=== PATIENT | female | born 1990 | race Caucasian/White ===

== ENCOUNTER → 2022-10-21 | Outpatient (CLI) | payer BC | LOC: GIR 16:21 | PROVIDERS: ATTEND Family Medicine | DX: N91.2 Amenorrhea, unspecified (principal) | CPT/HCPCS: 84702 ==

== ENCOUNTER → 2022-10-23 | Outpatient (CLI) | payer BC | LOC: GIR 16:00 | PROVIDERS: ATTEND Family Medicine | DX: N91.2 Amenorrhea, unspecified (principal) | CPT/HCPCS: 84702 ==

== ENCOUNTER 2022-12-06 06:05 | Day surgery (SDC) | payer BC ==
[~2022-12-06] VITALS: Ht 172.7 cm; Wt 139.1 kg
[2022-12-06] VITALS (10 sets, daily range): BP systolic 94–143; BP diastolic 54–91
[~2022-12-06 06:05] MED LIST: LABE1PLA IV; LEVO25CA4 PO
[2022-12-06] MEDS ORDERED: LACTATED RINGERS 1,000 ML 1,000 ML IV PRN (06:15)
[2022-12-06] MEDS ORDERED: dexAMETHasone INJ 10 MG/ML 1 ML VIAL ONE (07:14)
[2022-12-06] MEDS ORDERED: LIDOCAINE PF 2% 5 ML VIAL ONE (07:14)
[2022-12-06] MEDS ORDERED: SEVOFLURANE (ULTANE) 15 ML INHAL SOLN ONE (07:14)
[2022-12-06] MEDS ORDERED: fentaNYL INJECTION 100 MCG/2 ML VIAL ONE (07:14)
[2022-12-06] MEDS ORDERED: MIDAZOLAM INJ 2 MG/2 ML VIAL ONE (07:14)
[2022-12-06] MEDS ORDERED: proPOfol INJECTION 200 MG/20 ML VIAL IV ONE (07:14)
[2022-12-06] MEDS ORDERED: ONDANSETRON INJECTION 4 MG/2 ML (SDV) ONE (07:14)
[2022-12-06] MEDS ORDERED: KETOROLAC INJ 30 MG/ML VIAL ONE (07:14)
--- NOTE | 2022-12-06 07:22 | Progress Note-Pre Operative ---
Pre-Operative Progress Note Date of Available H&P: Dec 06, 2022 Date H&P Reviewed: Dec 06, 2022 Time H&P Reviewed: 07:21 History & Physical: H&P Reviewed, No changes noted Pre-Operative Diagnosis: Retained POC plan for D&C JOSE LOGAN DO Dec 06, 2022 07:22
[2022-12-06] MEDS ORDERED: OXYTOCIN INJECTION 10 UNIT/ML VIAL ONE (07:43)
--- NOTE | 2022-12-06 07:54 | Anesthesia-General Post-Op ---
General Patient Condition Mental Status/LOC: Same as Preop Cardiovascular: Satisfactory Nausea/Vomiting: Absent Respiratory: Satisfactory Pain: Controlled Complications: Absent Post Op Complications Complications None Follow Up Care/Instructions Patient Instructions None needed. Anesthesia/Patient Condition Patient Condition Patient is doing well, no complaints, stable vital signs, no apparent adverse anesthesia problems. No complications reported per nursing. MAYA FALCON CRNA Dec 06, 2022 07:54
--- NOTE | 2022-12-06 07:57 | OB/GYN Operative Report ---
Operative Report Date of Procedure:Dec 06, 2022 Preoperative Diagnosis: Retained Products of conception Postoperative Diagnosis: Same Name of the Procedure: Suction D&C Surgeon: Jose Logan [employer] Lecturer(s): [none] Anesthesia: GLMA Indications for Procedure: Retained POC Findings of the Procedure: Retained POC Complications: None Disposition: Stable to PACU Description of the Procedure: Informed consent was obtained and signed patient was taken to the OR [facility]. 2 placed under general LMA anesthesia placed in the dorsolithotomy position prepped and draped usual sterile fashion. A timeout was performed. Pelvic exam under anesthesia revealed a normal-sized uterus no adnexal masses. Weighted speculum was placed in the posterior vaginal vault and single-tooth tenaculum was used to grasp the anterior lip of the cervix. The cervical os was dilated to allow passage of a 7 Hungarian curved suction catheter. The suction catheter was inserted into the uterine cavity and suction was applied. Products of conception were removed with 3 passes of the suction catheter. The suction catheter was then removed the single-tooth and weighted speculum were also removed. Pitocin was given 20 units IV into the IV bag. The patient tolerated the procedure well was taken to recovery room in stable condition. All sponge instrument and needle counts were correct x2. EBL minimal fluids 300 cc urine output 100 cc JOSE LOGAN DO Dec 06, 2022 07:57
[2022-12-06] MEDS ORDERED: MEPERIDINE INJ 50 MG/ML VIAL IVP ONE (08:00)
[2022-12-06] MEDS ORDERED: ONDANSETRON INJECTION 4 MG/2 ML (SDV) IVP PRN (08:00)
[2022-12-06] MEDS ORDERED: morphine INJ 10 MG/ML 1ML (SYR OR VIAL) IVP ONE (08:00)
[2022-12-06] MEDS ORDERED: IBUP-1773 PO (09:18)
--- NOTE | 2022-12-06 09:19 | Discharge Inst-Simple/Standard ---
Discharge Inst-Standard Reconcile Patient Problems Problems Reviewed?: Yes Discharge Medications New, Converted or Re-Newed RX: Transmitted to Pharmacy Patient Instructions/Follow Up Plan of Care/Instructions/FU: Nothing in vagina (no tampons, douching, intercourse) Follow-up in 2 weeks. Activity as Tolerated: Yes Discharge Diet: Regular Diet JOSE LOGAN DO Dec 06, 2022 09:19
== END 2022-12-06 09:50 | disposition home or self-care (01) ==
LOC: SDC 06:05
PROVIDERS: ATTEND Obstetrics & Gynecology
DX: O02.1 Missed abortion (principal); I10 Essential (primary) hypertension; Z79.899 Other long term (current) drug therapy; E66.01 Morbid (severe) obesity due to excess calories; Z68.42 Body mass index [BMI] 45.0-49.9, adult
CPT/HCPCS: 87081